=== PATIENT | female | born 1960 | race Caucasian/White ===

== ENCOUNTER → 2016-11-24 08:05 | Outpatient (CLI) | payer MEDICAID ==
[~2016-11-24 08:05] MED LIST: BUPROPION XL150 MG PO; CALCIUM 250+D T1 TAB PO; CIPRO500 MG PO; GALZIN50 MG PO; HYDROCODONE-APA1 TAB PO; METFORMIN HCL500 M1 PO; MIMVEY 1-0.5 M1 EACH PO; MULTIPLE VITAMI1 TA1 PO; NEURONTIN600 MG PO; POTASSIUM99 M1 PO; PROVENTIL HFA6.7 GM; REQUIP1 MG PO; ROBAXIN-750750 MG PO
[2016-12-06 15:03] VITALS: BMI 27.5
== END | disposition home or self-care (01) ==
LOC: D.CT 08:05
DX: M48.06 Spinal stenosis, lumbar region (principal); M43.16 Spondylolisthesis, lumbar region

== ENCOUNTER 2016-12-06 05:52 | Day surgery (SDC) | payer MEDICAID ==
[2016-12-04 15:44] LABS: BASOPHILS 0.2 % (0.0-2.0); EOSINOPHILS 2.4 % (0-7); HEMATOCRIT 38.9 % (36.0-48.0); HEMOGLOBIN 12.8 g/dL (12-16); IMMATURE GRANULOCYTES 0.2 % (0-5); LYMPHOCYTES 35.4 % (15-50); MCH 31.2 pg (26.0-34.0); MCHC 32.9 g/dL (31.0-37.0); MCV 94.9 fL (80.0-100.0); MEAN PLATELET VOLUME 8.9 fL (7.4-10.4); MONOCYTES 8.3 % (2-11); NEUTROPHILS 53.5 % (40-80); PLATELET COUNT 252 10x3/uL (130-400); RDW 13.3 % (11.5-14.5); WBC 4.6 10x3/uL (4.8-10.8)
[2016-12-04 15:49] LABS: APPEARANCE CLEAR (CLEAR); BILIRUBIN NEGATIVE (NEGATIVE); COLOR YELLOW (YELLOW); GLUCOSE NEGATIVE (NEGATIVE); KETONE NEGATIVE (NEGATIVE); LEUKOCYTE ESTERASE TRACE (NEGATIVE); NITRITE POSITIVE (NEGATIVE); PROTEIN NEGATIVE (NEGATIVE); SPECIFIC GRAVITY 1.025 (1.005-1.020); UROBILINOGEN NORMAL (NORMAL)
[2016-12-04 15:50] LABS: BACTERIA MANY /hpf (NONE SEEN); EPITHELIAL CELLS 0-5 /hpf (0-5); RED CELLS - URINE OCC /hpf (0-5); WHITE CELLS - URINE 0-5 /hpf (0-5)
[2016-12-04 16:19] LABS: CALC OSMOLALITY 291 mosm/kg (275-300); CALCIUM 9.7 mg/dL (8.5-10.1); CARBON DIOXIDE 30.8 mmol/L (21.0-32.0); CHLORIDE - SERUM 105 mmol/L (98-107); CREATININE - SERUM 0.6 mg/dL (0.6-1.3); GLUCOSE 137 mg/dL (74-106); SODIUM 145 mmol/L (136-145); UREA NITROGEN 15 mg/dL (7-18); eGFR NON AFRICAN AMERICAN > 90 mL/min (90-120)
--- NOTE | 2016-12-05 10:21 | NUR ---
12/05/16 1020: DR. LUTHER'S OFFICE NOTIFIED OF ABNORMAL PRE-OP LAB, RESULTS FAXED.
[2016-12-06] VITALS (12 sets, daily range): BP systolic 90–148; BP diastolic 41–86; BMI 27.5
[~2016-12-06 05:52] MED LIST changes: -BUPROPION XL150 MG PO; -CIPRO500 MG PO; -GALZIN50 MG PO; -HYDROCODONE-APA1 TAB PO; -METFORMIN HCL500 M1 PO; -MIMVEY 1-0.5 M1 EACH PO; -MULTIPLE VITAMI1 TA1 PO; -NEURONTIN600 MG PO; -POTASSIUM99 M1 PO; -REQUIP1 MG PO; -ROBAXIN-750750 MG PO
[2016-12-06] MEDS ORDERED: BUPROPION XL150 MG PO (07:34)
[2016-12-06] MEDS ORDERED: REQUIP1 MG PO (07:35)
[2016-12-06] MEDS ORDERED: NEURONTIN600 MG PO (07:36)
[2016-12-06] MEDS ORDERED: MIMVEY 1-0.5 M1 EACH PO (07:36)
[2016-12-06] MEDS ORDERED: METFORMIN HCL500 M1 PO (07:37)
[2016-12-06] MEDS ORDERED: MULTIPLE VITAMI1 TA1 PO (07:37)
[2016-12-06] MEDS ORDERED: GALZIN50 MG PO (07:38)
[2016-12-06] MEDS ORDERED: CIPRO500 MG PO (07:38)
[2016-12-06] MEDS ORDERED: POTASSIUM99 M1 PO (07:38)
[2016-12-06 08:16] LABS: INR 0.96 (0.85-1.17); PROTIME 12.6 SECONDS (11.6-15.0)
--- NOTE | 2016-12-06 12:42 | HP ---
PATIENT: ZOILA ARREDONDO MEDICAL RECORD: [id number] ACCOUNT: [id number] LOCATION:[place] : 56 ADMISSION DATE: 12/06/16 HISTORY AND PHYSICAL EXAMINATION CHIEF COMPLAINT: Back pain. HISTORY OF PRESENT ILLNESS: This is a pleasant white female, who presented to our office with complaints of left lower extremity pain. She rates her pain 7/10, at times 10/10. She describes it as sharp. She has tried ____ and physical therapy with no help. She denies any specific presenting factor. PAST MEDICAL HISTORY: Significant for type 2 diabetes and she has fainting episodes that she gets too hot. PAST SURGICAL HISTORY: ORIF of right ankle, tonsillectomy, gallbladder surgery and emergency . SOCIAL HISTORY: She is , lives alone. She denies any tobacco or alcohol use. FAMILY DOCTOR: Dr. Anshu Zamudio. ALLERGIES: SEASONAL. CURRENT MEDICATIONS: A restless leg drug, gabapentin, something for depression and estrogen. She does not know the name of her drugs. PLAN: MRI was done at [facility], and Dr. Luther has her film. REVIEW OF SYSTEMS: She denies any recent chest pain, shortness of breath or weight changes. PHYSICAL EXAMINATION: HEENT: Normocephalic. Pupils are equal, reactive to light. CHEST: Clear bilaterally to auscultation. HEART: S1 and S2. ABDOMEN: Soft. Bowel sounds are present. EXTREMITIES: She has a slight lump on her left leg. Dorsiflexion and plantarflexion are intact. IMPRESSION: L5 pars defect with intermittent lower left extremity pain. PLAN: Left L5-S1 and lumbar laminectomy, left side. The risk and benefits of surgery have been explained to her in detail. Risks include bleeding, failure to relieve symptoms, problems with anesthesia and . Time was allowed for questions. Questions were answered. The patient wishes to proceed with surgery. TRANSINT:[id number] Voice Confirmation ID: [id number] DOCUMENT ID: [id number] Dictated By: KEAGAN GARCIA I have interviewed/examined the above patient and agree with these documented findings. HISTORY AND PHYSICAL [id number] ZOILA ARREDONDO HOMA,TASHA Kelly MD at 1242 at 0813 CC: [id number] DICTATION DATE: 12/05/16 1620 PIPE ASSEMBLY WORKER: 12/05/16 1759 [facility] [address] [id number]
--- NOTE | 2016-12-06 12:52 | NUR ---
OPA IN AIRWAY ON ADMIT
--- NOTE | 2016-12-06 14:10 | NUR ---
RECEIVED TO ROOM 2232 VIA BED FROM PACU. A/O X3. NO C/O AT THIS TIME. DENIES NEEDS. INCISION TO MID LOWER BACK CLEAN DRY AND WELL APPROXIMATED. NO DRAINAGE NOTED.
--- NOTE | 2016-12-06 16:33 | NUR ---
CALLED TO ROOM THAT SHE COULD NOT BREATH OR TALK. OXYGEN ON ROOM AIR 89-90%. OXYGEN APPLIED AT 2LNC AND SAT CLIMBS TO 98-99%. PT STATES THAT SHE CAN BREATH AND TALK AGAIN. OXYGEN DECREASED TO 1L NC TO MONITOR. CALL LIGHT IN PLACE
--- NOTE | 2016-12-06 18:26 | NUR ---
ATE ALL OF CLEAR LIQUID SUPPER TRAY. NO CHANGES NOTED. DENIES NEEDS.
--- NOTE | 2016-12-06 20:30 | NUR ---
YO ANBULATING IN ROOM. NO COMPLAINTS VOICED. INCISOIN TO LOWER BACK WIHTOUT REDNESS OR EDEMA NOTED. NO NV DEFICIETS NOTED.
--- NOTE | 2016-12-06 22:30 | NUR ---
BROUGHT PATIENT A SANDWHICH AND PUDDING PER HER REQUEST. PATIENT DENIES OTHER NEEDS AT THIS TIME. BED IN LOWEST POSITION AND CALL LIGHT WITHIN REACH. ENCOURAGED PATIENT TO CALL IF SHE HAS OTHER NEEDS.
[2016-12-07] VITALS: BP 92/37
--- NOTE | 2016-12-07 00:57 | NUR ---
LYING QUIETLY. NO COMPLAINTS.
[2016-12-07 04:00] VITALS: BP 87/30
--- NOTE | 2016-12-07 05:56 | NUR ---
NO CHANGE IN ASSESSMENT. CL IN REACH
--- NOTE | 2016-12-07 07:10 | OP ---
PATIENT NAME: ARIELLE ARREDONDO MEDICAL RECORD: [id number] :56 LOCATION:[facility]2 ADMISSION DATE: SURGEON: TASHA LUTHER MD DATE OF OPERATION: 12/06/2016 PREOPERATIVE DIAGNOSIS: Left L5 radiculopathy. POSTOPERATIVE DIAGNOSIS: Left L5 radiculopathy. PROCEDURES PERFORMED: 1. Left L5 laminotomy and medial facetectomy for L5 nerve root decompression and foraminotomy. 2. Use of intraoperative microscope and microdissection techniques. COMPLICATIONS: None apparent. FINDINGS: Foraminal compression; no durotomy. COMPLICATIONS: None apparent. SPECIMENS: None. HISTORY OF PRESENT ILLNESS: Ms. Arielle Arredondo is a pleasant 55-year-old female, who has been evaluated in clinic with significant left lower extremity pain consistent with L5 radiculopathy. Imaging is consistent with foraminal stenosis on the left side at L5-S1 with exiting nerve root impingement. I had an extensive discussion with her preoperative regarding her imaging findings including grade I spondylolisthesis and degenerative changes which may ultimately require fusion. I discussed with her in detail the risks, benefits, options of continued conservative therapy versus operative intervention in form of discectomy versus potential need for further fixation ____. She understood and agreed to go forth with the procedure for L5-S1 foraminotomy. Risks and benefits discussed with her in detail preoperatively. DESCRIPTION OF PROCEDURE: Ms. Arredondo was identified by the anesthesia team and transferred to the operative theater where general endotracheal anesthesia commenced and all appropriate lines and tubes were placed. She was gently transferred over in the prone position on the operative table on chest bolsters. Arms were placed in superman position. Pressure points were padded and eyes were accounted for by the anesthesia team. The lumbar area was prepped and draped in the usual sterile fashion. A timeout was performed and agreed to by those present prior to initiation of procedure. The patient did receive IV Ancef and gentamicin prior to incision. Incision was localized using AP and lateral fluoroscopy and a planned incision was infiltrated with local anesthetic. A 10-blade was used to carry the level of incision down to underlying subcutaneous fat, which was dissected away bluntly. The 10-blade was used to transect the fascia longitudinally. The metrics dilators were introduced and under lateral x-ray, the position was confirmed overlying the L5-S1 foramen. This was ultimately locked into place and the microscope brought into field. The position of the tube was confirmed with AP fluoroscopy as well. Using a Bovie electrocautery and pituitary rongeurs, the soft tissue overlying the left L5 lamina and facet junction was removed and the underlying bone was identified. Using combination of curettes, Kerrison rongeurs and a high speed matchstick drill, the bony foraminotomy via medial facetectomy and laminotomy was performed. The underlying ligamentum flavum was removed and a thecal sac OPERATIVE REPORT [id number] ARIELLE ARREDONDO was exposed. There was no palpable disc bulge, which was not surprising based on the MRI. As such, the bony work was extended inferiorly along the traversing S1 nerve root as well as superiorly along the exiting nerve root ____ and inferior to the L5 pedicle on that side. The thecal sac with transiting nerve root and the exiting nerve root foramen were wide open at the end of the decompression. Copious amount of irrigation was used and a Surgiflo hemostatic matrix was used to control a small amount of epidural hemorrhage. This was rinsed away and the tubes were removed. Further irrigation was used and small amount of vancomycin powder was sprinkled in both subfascial and suprafascial prior to closure. The 2-0 Vicryl suture was used to close the fashion and skin was closed with a running subcuticular 4-0 Monocryl. The patient tolerated the procedure well. All sponge and needle counts were correct times 2 at the end the case. There was no durotomy noted during the procedure. I updated the family immediately postoperatively in the waiting room regarding the course of the procedure. TRANSINT:[id number] Voice Confirmation ID: [id number] DOCUMENT ID: [id number] TASHA LUTHER MD at 0710 CC: [id number] DICTATION DATE: 12/06/16 1249 EXHIBIT TECHNICIAN: 12/06/16 [address] [id number] [place] [id number]
[2016-12-07] MEDS ORDERED: HYDROCODONE-APA1 TAB PO (07:14)
--- NOTE | 2016-12-07 07:30 | NUR ---
SITTING IN CHAIR WAITING FOR DISCHARGE, DENIES NEEDS, ASSESSMENT COMPLETE, CALL LIGHT IN REACH
[2016-12-07 08:00] VITALS: BP 109/49
--- NOTE | 2016-12-07 08:00 | NUR ---
VITAL SIGNS BEING OBTAINED AT THIS TIME. PT READY FOR DISCHARGE. UP IN CHAIR INDEPENDENTLY. DENIES NEEDS. CALL LIGHT IN REACH, WILL CONTINUE WITH PLAN OF CARE.
[2016-12-07] MEDS ORDERED: ROBAXIN-750750 MG PO (09:10)
--- NOTE | 2016-12-07 10:22 | NUR ---
DISCHARGE PAPER AND INSTRUCTIONS GIVEN, QUESTIONS ANSWERED, IV REMOVED TIP INTACT, DISCHARGED PER WC WITH BELONGINGS
== END 2016-12-07 10:28 | disposition home or self-care (01) ==
LOC: D.OPS 05:52 → D.MS 12:56
PROVIDERS: Anesthesiology; Neurological Surgery
DX: M54.16 Radiculopathy, lumbar region (principal); E11.9 Type 2 diabetes mellitus without complications; G25.81 Restless legs syndrome; F32.9 Major depressive disorder, single episode, unspecified; Z79.890 Hormone replacement therapy; Z79.899 Other long term (current) drug therapy